=== PATIENT | female | born 1945 | race Caucasian/White ===

== ENCOUNTER 2024-05-22 04:18 | Emergency (ER) | payer MEDICARE, OTHER ==
[2024-05-22] VITALS (13 sets, daily range): BP systolic 65–119; BP diastolic 35–69
[~2024-05-22] VITALS: Ht 162.6 cm; Wt 59.0 kg
[2024-05-22] MEDS ORDERED: SODIUM CHLORIDE 0.9% 1,000 ML IV ONE (04:45)
[2024-05-22 05:17] LABS: ALBUMIN 4.4 g/dL (3.2-5.0); ALKALINE PHOSPHATASE 54 u/l (38-126); BUN 9 mg/dL (8-23); BUN/CREATININE RATIO 9 (12-20 (CALC)); CHLORIDE 107 mmol/l (95-108); CREATININE 0.9 mg/dL (0.5-1.0); ESTIMATED GFR 65 ML/MIN (>=90 (CALC)); POTASSIUM 4.1 mmol/l (3.5-5.1); TOTAL PROTEIN 7.2 g/dL (6.3-8.2)
[2024-05-22 05:26] LABS: ANION GAP 12 (6-22 (CALC)); CARBON DIOXIDE 21 mmol/l (22-30); SGOT/AST 46 u/l (9-36); SODIUM 136 mmol/l (137-146)
[2024-05-22 05:42] LABS: BASO% 0.1 % (0-3); EOS% 0.7 % (0-8); HEMATOCRIT 40.6 % (37.0-47.0); HEMOGLOBIN 13.4 g/dl (12.0-16.0); IMMATURE GRANULOCYTES 0.2 % (0.0-5.0); LYMPH% 8.1 % (15-41); MEAN CELL VOLUME 100.5 fL CALC (80.0-100.0); MEAN CORPUSCULAR HGB 33.2 pG CALC (26.0-32.0); MONO% 9.7 % (2-13); NEUT# 11.15 thou/uL (2.00-7.15); NEUT% 81.2 % (42-76); RED BLOOD COUNT 4.04 mill/uL (4.20-5.60); RED CELL DISTRI WIDTH 11.9 % (11.5-15.5)
[2024-05-22 06:33] LABS: URINE BILIRUBIN - DIPSTICK Negative (NEGATIVE); URINE BLOOD DIPSTICK Trace-intact (NEGATIVE); URINE GLUCOSE - DIPSTICK Negative (NEGATIVE); URINE KETONE 15 mg/dL (NEGATIVE); URINE PH 6.5 (4.5-8.0); URINE PROTEIN - DIPSTICK 100 mg/dL (NEG-TRACE); URINE UROBILINOGEN - DIPSTICK 0.2 E.U./dL (0.2)
[2024-05-22 06:37] LABS: URINE COLOR Yellow; URINE LEUK ESTERASE Small (NEGATIVE); URINE NITRITE - DIPSTICK Negative (Negative)
[2024-05-22 06:39] LABS: URINE EPITHELIAL CELLS FEW EPI/hpf (0-FEW)
[2024-05-22 06:40] LABS: URINE BACTERIA MODERATE hpf; URINE COARSE GRANULAR CAST FEW lpf; URINE FINE GRAN CAST FEW lpf; URINE HYALINE CAST FEW lpf (NONE-RARE)
[2024-05-22] MEDS ORDERED: CEPHALEXIN MONOHYDRATE 500 MG/CAP PO ONE (06:50)
[2024-05-22] MEDS ORDERED: KEFLEX500 MG PO (06:50)
== END 2024-05-22 07:19 | disposition home or self-care (01) ==
LOC: ED 04:18
PROVIDERS: Family Medicine
DX: R55 Syncope and collapse (principal); N39.0 Urinary tract infection, site not specified; Z20.822 Contact with and (suspected) exposure to COVID-19; L40.9 Psoriasis, unspecified